=== PATIENT | female | born 1965 | race Caucasian/White ===

== ENCOUNTER 2018-06-20 08:28 | Emergency (ER) | payer SELFPAY, OTHER ==
[2018-06-20] MEDS: KETOROLAC 60 MG INJ IM (09:05)
[2018-06-20 09:10] LABS: URINE BLOOD (Dip) POC Negative (NEGATIVE); URINE KETONES (Dip) POC Negative (NEGATIVE); URINE LEUKOCYTE EST (Dip) POC Negative (NEGATIVE); URINE NITRITE (Dip) POC Negative (NEGATIVE); URINE TOTAL PROTEIN POC 1+ (NEGATIVE)
[2018-06-20 09:10] LABS: URINE PH (Dip) POC 5.5 (5.0-8.5)
[2018-06-25 00:08] LABS: URINE PH (Dip) POC 5.5 (5.0-8.5)
[2018-06-25 00:08] LABS: URINE BLOOD (Dip) POC Negative (NEGATIVE); URINE KETONES (Dip) POC Negative (NEGATIVE); URINE LEUKOCYTE EST (Dip) POC Negative (NEGATIVE); URINE NITRITE (Dip) POC Negative (NEGATIVE); URINE TOTAL PROTEIN POC 1+ (NEGATIVE)
== END 2018-06-20 09:33 | disposition home or self-care (01) ==
LOC: FTE 08:28
DX: M54.2 Cervicalgia (principal); M54.9 Dorsalgia, unspecified; J45.909 Unspecified asthma, uncomplicated
CPT/HCPCS: 81003; 81025; 96372; 99284-25